=== PATIENT | male | born 1980 | race Caucasian/White ===

== ENCOUNTER 2016-06-24 08:35 | Emergency (ER) | payer BC, OTHER ==
[~2016-06-24] VITALS: Ht 165.1 cm; Wt 78.6 kg
[2016-06-24 08:38] VITALS: Ht 165.1 cm; Wt 78.6 kg
[2016-06-24] MEDS ORDERED: LIDOCAINE 1% (MDV) 20 ML INJ SC ONE (09:30)
[2016-06-24] MEDS ORDERED: DIPHTH/TET/ACEL PERTUSS (ADULT) 0.5 ML VIAL IM* ONE (09:30)
--- NOTE | 2016-06-24 09:33 | RADRPT ---
PROCEDURE: Right hand series CLINICAL INDICATION: Right hand pain after trauma TECHNIQUE: Three views of the right hand were obtained. COMPARISON: No prior studies are available for comparison. FINDINGS: There is normal mineralization and alignment of the bones of the right hand. There is a chronic manoj earing distal ulnar styloid fracture. There is no evidence of acute fracture or dislocation. Joint spaces are well maintained. There is no evidence of osteophyte formation or erosions. The soft ti ssues are within normal limits. IMPRESSION: 1. No evidence of acute fracture or dislocation. 2. Chronic ulnar styloid fracture.. RPTAT: KK .Maurice Jimenez MD, MD Date Time Electronically viewed and signed by .Maurice Jimenez MD, MD on 06/24/2016 09:33 .B/
--- NOTE | 2016-06-24 10:12 | ERD ---
ER Documentation Chief Complaint Date/Time DATE: 06/24/16 TIME: 09:55 Chief Complaint right hand lac HPI 36-year-old male presented to ED with laceration to the dorsal right hand. Patient sustained a laceration yesterday evening while working under his car. Patient stated that he was applying a wrench, when the wrench slipped his right hand hit the under side of his car hard. He irrigated the wound at home, and applied a Steri-Strip himself. This morning, he noticed a fair amount of oozing from the wound. He is able to move his hands. He is right-hand dominant. He did not remember when the last time he had a tetanus update. Denies fever or chills. ROS All systems reviewed and are negative except as per history of present illness. Medications Home Meds Active Scripts Ibuprofen* (Motrin*) 600 Mg Tab, 600 MG PO Q6H Y for PAIN AND OR ELEVATED TEMP, #30 TAB Prov:DAVE SÁNCHEZ [employer] 06/24/16 Allergies Allergies: Coded Allergies: No Known Allergy (Verified Allergy, Unknown, 07/28/08) PMhx/Soc Medical and Surgical Hx: pt denies Medical Hx, pt denies Surgical Hx History of Surgery: No Anesthesia Reaction: No Hx Neurological Disorder: No Hx Respiratory Disorders: No Hx Cardiac Disorders: No Hx Psychiatric Problems: No Hx Miscellaneous Medical Probl: No Hx Alcohol Use: Yes (socially) Hx Substance Use: No Hx Tobacco Use: No Smoking Status: Never smoker Physical Exam Vitals Vital Signs Date Time Temp Pulse Resp B/P Pulse Ox O2 Delivery O2 Flow Rate FiO2 06/24/16 08:38 98.1 62 18 124/86 99 Physical Exam General impression: Well-developed, well-nourished. Alert, oriented, in no acute distress Head: Normocephalic, atraumatic. Eyes: PERRL, EOM normal. Conjunctiva not injected. Respiration: Normal respiratory effort. Lungs clear to auscultate bilaterally. No wheezes, rales or rhonchi. Cardiovascular: Regular rate and rhythm. No murmurs or extra heart sounds. Extremities: A 2 cm linear incision wound noted on the dorsal right hand overlying the distal fifth metatarsal carpal. Small amount of serous drainage from the wound. Patient able to flex and extend all the fingers in his right hand. Neuro: Mental status normal, speech normal. [employer] SHEAR OPERATOR grossly intact. Skin: Normal turgor. No rash or lesions. Psych: Normal mood and affect. Results 24 hrs Current Medications Medications (Trade) Dose Ordered Sig/Steve Route PRN Reason Start Time Stop Time Status Last Admin Dose Admin Lidocaine (Xylocaine 1% (Mdv) 20 ml) 20 ml ONCE ONCE SC 06/24/16 09:30 06/24/16 09:31 DC Diphtheria/ Tetanus/Acell Pertussis (Adacel) 0.5 ml ONCE ONCE IM* 06/24/16 09:30 06/24/16 09:31 DC 06/24/16 09:16 PROCEDURE: Right hand series CLINICAL INDICATION: Right hand pain after trauma TECHNIQUE: Three views of the right hand were obtained. COMPARISON: No prior studies are available for comparison. FINDINGS: There is normal mineralization and alignment of the bones of the right hand. There is a chronic appearing distal ulnar styloid fracture. There is no evidence of acute fracture or dislocation. Joint spaces are well maintained. There is no evidence of osteophyte formation or erosions. The soft tissues are within normal limits. IMPRESSION: 1. No evidence of acute fracture or dislocation. 2. Chronic ulnar styloid fracture.. RPTAT: KK .Maurice Jimenez MD, MD Date Time Electronically viewed and signed by .Maurice Jimenez MD, MD on 2016 09:33 .B/ CC: [employer] Procedures/MDM X-ray right hand show no acute fractures. Chronic ulnar styloid fracture was noted. Patient admits to old fracture to his right wrist. Procedure note: laceration repair Verbal consent was obtained for the laceration repair. The wound was copiously irrigated. Local anesthesia was provided using 1% lidocaine. After appropriate anesthesia, the area was explored under a bloodless field. Full range of motion of the joint above and below the injury was noted. No foreign body, deep structure or tendon involvement was noted. Closure was achieved with 3 interrupted sutures using 3-0 Ethilon. Good cosmetic and hemostatic results were obtained with the closure. The wound was then cleaned and a dressing was applied. TDap given to the patient in the ED. Patient advised to follow-up in the ED in 2 days for wound check. DAVE SÁNCHEZ NP Jun 24, 2016 10:07
[2016-06-24] MEDS ORDERED: IBUP-1542 PO (10:24)
== END 2016-06-24 10:45 | disposition home or self-care (01) ==
LOC: FTE 08:35
DX: S61.411A Laceration without foreign body of right hand, initial encounter (principal); W22.8XXA Striking against or struck by other objects, initial encounter; Y92.9 Unspecified place or not applicable; Z23 Encounter for immunization
CPT/HCPCS: 90471; 90715